=== PATIENT | female | born 1985 | race Caucasian/White ===

== ENCOUNTER 2018-03-27 16:03 | Emergency (ER) | payer OTHER, MEDICAID ==
--- NOTE | 2018-03-27 16:23 | EDPHY ---
H & P Stated Complaint: Dx w/UTI at [facility];needs RX for macrobid but they haven't called RX in for Time Seen by Provider: 03/27/18 16:23 HPI/ROS: HPI CHIEF COMPLAINT: "I think I have a urinary tract infection" HISTORY OF PRESENT ILLNESS: 32-year-old female, states she is otherwise healthy however does have polycystic kidney disease, presents emergency room with urinary frequency and dysuria. Patient states she initially started having urinary symptoms on March 11, she did see her primary care doctor who called in a prescription but she states for over reason she did not get her prescription filled and has not been on antibiotics for the past 15-16 days. She continues to have urinary frequency and dysuria. She denies fever, vomiting , chest pain, shortness of breath. Additionally the patient denies any fever, vaginal discharge, STI exposure. Past Medical History: Polycystic kidney disease, chronic pain, chronic back and abdominal pain. Use to be in pain management in [place]. Past Surgical History: No recent surgical history Social History: Denies drugs alcohol tobacco. Family History: Noncontributory ROS REVIEW OF SYSTEMS: 10 Systems were reviewed and negative with the exception of the elements mentioned in the history of present illness. Exam Constitutional nontoxic no acute distress, triage nursing summary reviewed, vital signs reviewed, awake/alert. Eyes normal conjunctivae and sclera, EOMI, PERRLA. HENT normal inspection, atraumatic, moist mucus membranes, no epistaxis, neck supple/ no meningismus, no raccoon eyes. Respiratory clear to auscultation bilaterally, normal breath sounds, no respiratory distress, no wheezing. Cardiovascular rate normal, regular rhythm, no murmur, no edema, distal pulses normal. Gastrointestinal soft, non-tender, no rebound, no guarding, normal bowel sounds, no distension, no pulsatile mass. Genitourinary no CVA tenderness. Musculoskeletal no midline vertebral tenderness, full range of motion, no calf swelling, no tenderness of extremities, no meningismus, good pulses, neurovascularly intact. Skin pink, warm, & dry, no rash, skin atraumatic. Neurologic awake, alert and oriented x 3, AAOx3, moves all 4 extremities equally, motor intact, sensory intact, CN II-XII intact, normal cerebellar, normal vision, normal speech. Psychiatric normal mood/affect. Heme/Lymph/Immune no lymphadenopathy. Differential Diagnosis: Differential diagnosis includes but is not limited to and in no particular order: UTI, cystitis Bowel obstruction, appendicitis, gallbladder disease, diverticulitis, colitis, enteritis, perforated viscus, gastritis, GERD, esophagitis, urinary tract infection, pyelonephritis, kidney stones Medical Decision Making: Plan for this patient check UA, urine and re -evaluate. This patient appears well nontoxic has stable vital signs, CVA tenderness on exam. Re-evaluation: Urinalysis does not reveal urinary tract infection. 1714: Plan for this patient IV establishment with blood draw, IV fluid bolus, CT scan abdomen pelvis with IV contrast to help delineate lower abdominal pain and back pain. CT scan abdomen pelvis with IV contrast: Negative for acute inflammatory process however does show a right involuted ovarian cyst with some free fluid possibly concerning for ruptured ovarian cyst. No large hemoperitoneum. No evidence cystitis. CT scan she does show polycystic kidney disease. No evidence of abscess or infection. This CT scan was called to me by Dr. Parrish. 18 12: Updated patient about her CT results and blood work. As well as her urinalysis. It is possible that her lower abdominal pain is from the ruptured ovarian cyst. Do recommend she follows up with her primary care doctor/OBGYN. Recommend Tylenol Motrin for pain control Return precautions discussed return emergency room if worsening abdominal pain, fever, vomiting. Patient re-evaluated at 6:19 p.m. Patient requesting pain medication. I prescribed her 800 mg Motrin. She used to be in chronic pain management with chronic pain in [place]. She states "nobody will treat her with narcotics here in [place]". She also states she cannot get with pain management here. She states she relocated from [place]. I do recommend she follows up with primary care doctor about pain management. States she suffers from chronic pain. Patient repeatedly asking me for narcotic pain medicine. I have declined. I do recommend she takes Tylenol and or Motrin. When I declined, she started screaming and yelling throwing her personal belongings around the room, she threw a stack of tissues throughout the room and outside in the hallway. Screaming at me, and yelling, and disturbing the ER. Security at bedside. I do have concern about patient's opiate seeking behavior. Of note also her CT scan revealed a small right ovarian cyst I do not feel this is the cause of her urinary discomfort since early March or for the past 15 days. However I do recommend she follows up, Tylenol/Motrin for pain control. Return precautions again discussed with her. Case management requested to get involved in this patient's care. Source: Patient - Personal History LMP (Females 10-55): Irregular Current Tetanus Diphtheria and Acellular Pertussis (TDAP): Yes - Medical/Surgical History Hx Asthma: No Hx Chronic Respiratory Disease: No Hx Diabetes: No Hx Cardiac Disease: No Hx Renal Disease: No Hx Cirrhosis: No Hx Alcoholism: No Hx HIV/AIDS: No Hx Splenectomy or Spleen Trauma: No Other PMH: PMH- POLYCSTIC KIDNEY DZ, KIDNEY STONE - Social History Smoking Status: Current every day smoker Constitutional: Initial Vital Signs Temperature (C) 37.4 C 03/27/18 16:05 Heart Rate 86 03/27/18 16:05 Respiratory Rate 18 03/27/18 16:05 Blood Pressure 161/82 H 03/27/18 16:05 O2 Sat (%) 96 03/27/18 16:05 O2 Delivery Mode Room Air Allergies/Adverse Reactions: Penicillins Allergy (Intermediate, Verified 03/27/18 16:05) Hives Home Medications: Medication Instructions Recorded Ibuprofen [Motrin (*)] 800 mg PO Q6-8PRN #10 tab 03/27/18 Medical Decision Making - Diagnostics Imaging Results: Imaging Impressions Abdomen CT 03/27/18 17:12 Impression: 1. Autosomal dominant polycystic kidney disease without features of obstructive uropathy or perinephric inflammatory stranding. 2. Involuting right ovarian follicle cyst with trace peritoneal free fluid. 3. L5-S1 degenerative disk disease. Results called to Dr. Gunnar Olguin at 6:15 PM. - Data Points Laboratory Results: Laboratory Results 03/27/18 17:15 03/27/18 17:15 03/27/18 03/27/18 03/27/18 17:31 17:15 17:15 WBC RBC Hgb POC Hgb 12.9 gm/dL gm/dL (12.6-16.3) Hct POC Hct 38 % % (38-47) MCV MCH MCHC RDW Plt Count MPV Neut % (Auto) Lymph % (Auto) [place] % (Auto) Eos % (Auto) Baso % (Auto) Nucleat RBC Rel Count Absolute Neuts (auto) Absolute Lymphs (auto) Absolute Monos (auto) Absolute Eos (auto) Absolute Basos (auto) Absolute Nucleated RBC Immature Gran % Immature Gran # POC Sodium 142 mEq/L mEq/L (135-145) Sodium 136 mEq/L mEq/L (135-145) POC Potassium 4.0 mEq/L mEq/L (3.3-5.0) Potassium 4.3 mEq/L mEq/L (3.5-5.2) POC Chloride 107 mEq/L mEq/L (97-110) Chloride 108 mEq/L mEq/L (97-110) Carbon Dioxide 23 mEq/l mEq/l (22-31) Anion Gap 5 mEq/L L mEq/L (6-14) POC BUN 15 mg/dL mg/dL (7-23) BUN 17 mg/dL mg/dL (7-23) Creatinine 1.3 mg/dL H mg/dL (0.6-1.0) POC Creatinine 1.3 mg/dL H mg/dL (0.6-1.0) Estimated GFR 47 Glucose 81 mg/dL mg/dL (70-100) POC Glucose 82 mg/dL mg/dL (70-100) Calcium 9.0 mg/dL mg/dL (8.5-10.4) Total Bilirubin 0.3 mg/dL mg/dL (0.1-1.4) Conjugated Bilirubin 0.2 mg/dL mg/dL (0.0-0.5) Unconjugated Bilirubin 0.1 mg/dL mg/dL (0.0-1.1) AST 18 IU/L IU/L (14-46) ALT 15 IU/L IU/L (9-52) Alkaline Phosphatase 47 IU/L IU/L (38-126) Total Protein 7.1 g/dL g/dL (6.3-8.2) Albumin 4.0 g/dL g/dL (3.5-5.0) Lipase 116 IU/L IU/L (23-300) Beta HCG, Qual NEGATIVE Urine Color Urine Appearance Urine pH Ur Specific [place] Urine Protein Urine Ketones Urine Blood Urine Nitrate Urine Bilirubin Urine Urobilinogen Ur Leukocyte Esterase Urine Glucose Urine Test 03/27/18 03/27/18 03/27/18 17:15 16:30 16:30 WBC 6.85 10^3/uL 10^3/uL (3.80-9.50) RBC 3.98 10^6/uL L 10^6/uL (4.18-5.33) Hgb 11.8 g/dL L g/dL (12.6-16.3) POC Hgb Hct 35.9 % L % (38.0-47.0) POC Hct MCV 90.2 fL fL (81.5-99.8) MCH 29.6 pg pg (27.9-34.1) MCHC 32.9 g/dL g/dL (32.4-36.7) RDW 13.1 % % (11.5-15.2) Plt Count 280 10^3/uL 10^3/uL (150-400) MPV 10.1 fL fL (8.7-11.7) Neut % (Auto) 61.1 % % (39.3-74.2) Lymph % (Auto) 30.4 % % (15.0-45.0) [place] % (Auto) 5.8 % % (4.5-13.0) Eos % (Auto) 1.5 % % (0.6-7.6) Baso % (Auto) 0.9 % % (0.3-1.7) Nucleat RBC Rel Count 0.0 % % (0.0-0.2) Absolute Neuts (auto) 4.19 10^3/uL 10^3/uL (1.70-6.50) Absolute Lymphs (auto) 2.08 10^3/uL 10^3/uL (1.00-3.00) Absolute Monos (auto) 0.40 10^3/uL 10^3/uL (0.30-0.80) Absolute Eos (auto) 0.10 10^3/uL 10^3/uL (0.03-0.40) Absolute Basos (auto) 0.06 10^3/uL 10^3/uL (0.02-0.10) Absolute Nucleated RBC 0.00 10^3/uL 10^3/uL (0-0.01) Immature Gran % 0.3 % % (0.0-1.1) Immature Gran # 0.02 10^3/uL 10^3/uL (0.00-0.10) POC Sodium Sodium POC Potassium Potassium POC Chloride Chloride Carbon Dioxide Anion Gap POC BUN BUN Creatinine POC Creatinine Estimated GFR Glucose POC Glucose Calcium Total Bilirubin Conjugated Bilirubin Unconjugated Bilirubin AST ALT Alkaline Phosphatase Total Protein Albumin Lipase Beta HCG, Qual Urine Color YELLOW Urine Appearance CLEAR Urine pH 7.0 (5.0-7.5) Ur Specific [place] 1.013 (1.002-1.030) Urine Protein NEGATIVE (NEGATIVE) Urine Ketones NEGATIVE (NEGATIVE) Urine Blood NEGATIVE (NEGATIVE) Urine Nitrate NEGATIVE (NEGATIVE) Urine Bilirubin NEGATIVE (NEGATIVE) Urine Urobilinogen NEGATIVE EU EU (0.2-1.0) Ur Leukocyte Esterase NEGATIVE (NEGATIVE) Urine Glucose NEGATIVE (NEGATIVE) Urine Test NEGATIVE Medications Given: Discontinued Medications Sodium Chloride (Ns) 1,000 mls @ 0 mls/hr IV EDNOW ONE; Wide Open PRN Reason: Protocol Stop: 03/27/18 17:13 Last Admin: 03/27/18 17:23 Dose: 1,000 mls Ketorolac Tromethamine (Toradol) 15 mg IVP EDNOW ONE Stop: 03/27/18 17:34 Last Admin: 03/27/18 17:35 Dose: 15 mg Point of Care Test Results: Chemistry 03/27/18 17:31 POC Sodium 142 mEq/L mEq/L (135-145) POC Potassium 4.0 mEq/L mEq/L (3.3-5.0) POC Chloride 107 mEq/L mEq/L (97-110) POC BUN 15 mg/dL mg/dL (7-23) POC Creatinine 1.3 mg/dL H mg/dL (0.6-1.0) POC Glucose 82 mg/dL mg/dL (70-100) ISTAT H&H 03/27/18 17:31 POC Hgb 12.9 gm/dL gm/dL (12.6-16.3) POC Hct 38 % % (38-47) Departure - Departure Disposition: Home, Routine, Self-Care Clinical Impression: Ruptured ovarian cyst Abdominal pain Qualifiers: Abdominal location: generalized Qualified Code(s): R10.84 - Generalized abdominal pain Condition: Good Instructions: Ovarian Cyst (ED), Acute Abdominal Pain (ED), Ruptured Ovarian Cyst (ED) Additional Instructions: 1. Return to the emergency room if develops worsening abdominal pain, fever, vomiting 2. Please follow up with your primary care doctor Referrals: Julisa Gipson MD [Primary Care Provider] - As per Instructions Prescriptions: Ibuprofen [Motrin (*)] 800 mg PO Q6-8PRN #10 tab
[2018-03-27] MEDS ORDERED: NS 1,000 ML IV ONE (17:12)
[2018-03-27] MEDS ORDERED: KETOROLAC 15 MG/1 ML SDV IVP ONE (17:33)
[2018-03-27] MEDS ORDERED: KETOROLAC 15 MG/1 ML SDV ONE (17:35)
[2018-03-27 17:38] LABS: PLATELET COUNT 280 10^3/uL (150-400)
[2018-03-27] MEDS ORDERED: IOPAMIDOL (ISOVUE 370) 100 ML BTL IV ONE (17:49)
[2018-03-27 18:36] VITALS: BP 126/78
--- NOTE | 2018-03-28 15:43 | ASMTCMCOM ---
CM Note CM Note Notes: Case Management order received from patient visit last night. Chart reviewed. Chart flagged for narcotic caution based on ED report. ED report faxed to patient's PCP Katelyn Gipson at [facility] in [place] for care coordination CM available prn Date Signed: 03/28/2018 03:43 PM Electronically Signed By:Thuy Jett RN
== END 2018-03-27 18:46 | disposition home or self-care (01) ==
DX: N83.291 Other ovarian cyst, right side (principal); Q61.2 Polycystic kidney, adult type
CPT/HCPCS: 74177; 96374; 99285; J1885; Q9967; 82435-PO; 82565-PO; 82947-PO; 84132-PO; 84295-PO; 84520-PO; 85014-ER